=== PATIENT | male | born 1995 | race Caucasian/White ===

== ENCOUNTER 2022-06-04 13:34 | Emergency (ER) | payer SELFPAY ==
[2022-06-04 13:36] VITALS: BP 138/78; PULSE 74; RESP 18; TEMP 37.2; O2SAT 97
--- NOTE | 2022-06-04 13:45 | DI.RAD_ITS ---
Exam(s) XR SHOULDER RT COMPLETE 2+V EXAM: XR SHOULDER RT COMPLETE 2+V CLINICAL HISTORY: pain s/p fall. TECHNIQUE: 2D digital imaging was performed. Five views. COMPARISON: No exams were available for comparison FINDINGS: BONES: No acute fracture is present. No bony destructive lesion is seen. JOINTS: No dislocation present. SOFT TISSUE: Normal. IMPRESSION: Unremarkable radiographs of the right shoulder. DATA REPOSITORY: RADIATION DOSE DELIVERED:
--- NOTE | 2022-06-04 13:45 | ED.GENADUL_ITS ---
Discharge Plan Disposition Patient Disposition: Home Condition: Stable Discharge Details Clinical Impression: Sprain of right shoulder Primary Care Provider: None,None ED Provider: Wai Centeno Discharge Instructions Instructions: Shoulder Sprain (ED) Additional Instructions: if pain continues next week follow up with your primary care provider if you feel more ill, have severe worsening pain or new symptoms such as difficulty breathing return to the emergency department Medical Decision Making 26 yo male who denies chronic medical problems comes in after he was in an evade class and while performing maneuver injured the right shoulder and fell onto the right shoulder. Denies hitting head, loc. He localizes the pain to the right shoulder anteriorly and has no visible or palpable deformity. HE arrives appearing well in no distress, caox4 without signs of trauma to the head. No c/t/l spine tenderness, only has tenderness to the anterior shoulder. He can abduct to about 90 degrees then limited by pain, no pain or tenderness elsewhere in the arm and normal intact distal sensation and pulses. Suspect strain of the shoulder but will xray to evaluate for possible fx/dislocation xray unremarkable, pt stable. Advised of results, suspect strain but if he still has pain next week to see pcp, return precautions given Differential Diagnosis Differential Diagnosis: contusion, sprain, strain, rotator cuff injury Imaging Data Radiologic Study: Attestation: I personally reviewed and interpreted this imaging study as follows: Imaging: X-Ray Radiologist's impression: no acute findings HPI General Mode of arrival: ambulatory . Date/Time Provider Initiated Documentation: 06/04/22 13:39 . Limitations to Documentation: no limitations . Information obtained by: patient . History of Present Illness 26 year old M presents to the emergency department with the chief complaint of right shoulder pain, described as moderate, Quality is described as aching, and is localized to the right and upper extremity. Patient reports no radiation. Patient started experiencing this hour(s) (1) and it has been constant. Rest improves symptom(s), Movement worsens symptoms . Patient notes no other symptoms.. Patient did receive the following treatments prior to arrival, none General Stated Complaint: Orthopedic ARBEN: 4 Review of Systems All systems reviewed & are unremarkable except as noted in HPI and below Constitutional Constitutional: Denies chills, Denies fever(s) and Denies weakness Respiratory Respiratory: Denies cough Gastrointestinal Gastrointestinal: Denies abdominal pain, Denies nausea and Denies vomiting Musculoskeletal Musculoskeletal: Denies joint swelling Integumentary/Breasts Skin/Breast: Denies rash Neurologic Neurologic: Denies weakness PFSH All Active Problems (Updated 06/04/22 @ 13:56 by Wai Centeno MD) Sprain of right shoulder (Acute) Social History Smoking/Tobacco Use Status: Current every day Tobacco Type: e-cigarettes Smoking risk assessment performed?: Yes Alcohol Intake: current Alcohol Intake frequency: a few times a month Drug use: Never Substance use type: does not use Do you feel safe at home: Yes Do you feel safe in your relationship?: Yes Exam Const General: no acute distress Orientation: alert HENMT Head: normal to inspection Ears: external ears normal General nose exam: external nose normal Mouth: moist mucous membranes Eyes General: appearance normal, both eyes and all related structures Neck Neck: normal visual inspection, trachea midline, nontender and no JVD Resp Effort & Inspection: normal respiratory effort and able to speak in complete sentences Cardio Rate: regular rate Skin General skin exam: no rashes or lesions noted Neuro General: patient alert and patient oriented x3 Extrem General: normal to inspection and capillary refill normal Psych Mental Status: mental status grossly normal Course Vital Signs Vital signs: Vital Signs Temperature 37.2 C 06/04/22 13:36 Pulse 74 06/04/22 13:36 Respiratory Rate 18 06/04/22 13:36 Blood Pressure 138/78 06/04/22 13:36 Pulse Oximetry 97 06/04/22 13:36 Temperature 37.2 C 06/04/22 13:36 Temperature Source Tympanic 06/04/22 13:36 Pulse 74 06/04/22 13:36 Respiratory Rate 18 06/04/22 13:36 Respiratory Effort 06/04/22 13:41 Blood Pressure 138/78 06/04/22 13:36 Blood Pressure Position Supine 06/04/22 13:36 Pulse Oximetry 97 06/04/22 13:36 Oxygen Delivery Method Room Air 06/04/22 13:36 Oxygen Flow Rate 0 06/04/22 13:36 Pain Level 6 06/04/22 13:36
== END 2022-06-04 14:55 | disposition home or self-care (01) ==
PROVIDERS: Emergency Provider Emergency Medicine
DX: S43.401A Unspecified sprain of right shoulder joint, initial encounter (principal); W19.XXXA Unspecified fall, initial encounter
CPT/HCPCS: 99283; 73030; 99282